=== PATIENT | male | born 1950 | race Caucasian/White ===

== ENCOUNTER 2018-02-20 10:30 | Day surgery (SDC) | payer MEDICARE, OTHER, SELFPAY ==
--- NOTE | 2018-02-20 12:17 | OP.PCM_ITS ---
Operative Report Date of Procedure: 02/20/18 DC cardioversion. 67-year-old man with a history of chronic persistent atrial fibrillation. The patient has been on anticoagulation for at least 3 weeks and was brought to the cardiac catheterization lab in the postabsorptive nonsedated state. The patient was seen by Dr. Vanegas of the critical care division. The patient was administered 90 mg of intravenous propofol. Anterior-posterior pads were applied. 200 J of synchronized DC cardioversion energy were applied we did not resulted in reversion to sinus rhythm. The patient then received 300 J of biphasic synchronized DC cardioversion energy with prompt reversal to sinus rhythm. Conclusion: Successful DC cardioversion to sinus rhythm. Follow-up with primary real estate officer.
--- NOTE | 2018-02-20 13:19 | OP.PCM_ITS ---
Problem List (1) A-fib Status: Chronic Qualifiers: Atrial fibrillation type: chronic Qualified Code(s): I48.2 - Chronic atrial fibrillation (2) AHMET (obstructive sleep apnea) Status: Chronic (3) History of tobacco abuse Status: Chronic (4) Morbid obesity Status: Chronic Operative Report Date of Procedure: 02/20/18 - Conscious sedation CONSCIOUS SEDATION REPORT BRIEF HISTORY OF PRESENT ILLNESS: The patient is a 67-year-old male who presented to [facility] for an elective outpatient cardioversion due to underlying atrial fibrillation. The patient reports no PO intake since midnight. The patient does have a history of obstructive sleep apnea. The patient reports a history of smoking, but has not been diagnosed with COPD. The patient denies any recent constitutional symptoms such as fevers, chills, nausea or vomiting. The patient denies previous anesthetic complications. Last known ejection fraction of 55%. PHYSICAL EXAMINATION: VITAL SIGNS: Reviewed and were acceptable. GENERAL: The patient is an obese male, in no apparent distress, speaking in full sentences. HEENT: Normocephalic, atraumatic. Mucous membranes are moist and pink. Good mouth opening noted. Trachea is midline. Good neck mobility. MP IV CHEST: S1, S2 irregularly irregular. No murmurs, rubs or gallops were noted. LUNGS: Clear to auscultation bilaterally without appreciable wheezes, rales or rhonchi. ABDOMEN: Soft, nontender, nondistended. Positive bowel sounds. EXTREMITIES: There is no clubbing, cyanosis or edema. ASA Class: II DESCRIPTION OF PROCEDURE: After confirmation of informed consent, the patient's anesthesia plan was reviewed in detail. Propofol was chosen. Risks and benefits were reviewed and the patient agreed to proceed. At 12:03 PM, the patient was given 40 mg of propofol. The patient required a total of 90 mg of propofol throughout the procedure to achieve appropriate sedation. The patient achieved an appropriate level of sedation and received 2 attempt s synchronized cardioversion, at 200 J and [address] Holder at the bedside. This was successful in achieving normal sinus rhythm. The patient was monitored until 12:11 PM, at which time the patient reached their baseline mental status and function. The patient tolerated the procedure well. COMPLICATIONS: None ESTIMATED BLOOD LOSS: None RECOMMENDATIONS: Okay to recover in usual fashion. Code Visit [id number]: Other Procedure See Report - 60411-0 minutes conscious sedation
== END 2018-02-20 13:30 | disposition home or self-care (01) ==
PROVIDERS: Family Provider Student in an Organized Health Care Education/Training Program; PCP Student in an Organized Health Care Education/Training Program; Referring Provider Internal Medicine Cardiovascular Disease; Visit Provider Internal Medicine Cardiovascular Disease
DX: I48.2 Chronic atrial fibrillation (principal); I48.0 Paroxysmal atrial fibrillation; I10 Essential (primary) hypertension; G47.33 Obstructive sleep apnea (adult) (pediatric); E78.5 Hyperlipidemia, unspecified; M19.90 Unspecified osteoarthritis, unspecified site; E66.01 Morbid (severe) obesity due to excess calories; Z68.41 Body mass index [BMI] 40.0-44.9, adult; Z87.891 Personal history of nicotine dependence; Z79.01 Long term (current) use of anticoagulants; Z79.899 Other long term (current) drug therapy
CPT/HCPCS: 92960; 93005; J7040

== ENCOUNTER 2019-04-21 03:06 | Emergency (ER) | payer MEDICARE, OTHER, SELFPAY ==
[2018-10-11 09:56] VITALS: BMI 44.2
[2019-04-21 03:07] VITALS: BP 147/86; PULSE 86; RESP 14; TEMP 36.7; O2SAT 96; BMI 44.9
--- NOTE | 2019-04-21 03:27 | EKG12_ITS ---
Test Reason : SYNCOPE Blood Pressure : / mmHG Vent. Rate : 085 BPM Atrial Rate : 312 BPM P-R Int : 000 ms QRS Dur : 094 ms QT Int : 366 ms P-R-T Axes : 000 -29 060 degrees QTc Int : 435 ms Atrial fibrillation Abnormal ECG Confirmed by MARIS PORTILLO, HUNTER ([id number]), segment assembler JENSEN TROTTER ([id number]) on 04/23/2019 12:19:40 PM Referred By: Chidi Greenberg Confirmed By:HUNTER POLLOCK MD
--- NOTE | 2019-04-21 03:28 | ED.VIS.GEN ---
History of Present Illness Chief Complaint: Syncope Informant: Patient Narrative: Stated he had a syncopal episode tonight. He got up to use the restroom. He was standing at the toilet got lightheaded and passed out. He found himself on the floor. He stated he did not injure himself. He did not hit his head. He does not have a headache. He has had this happen remotely when he was in atrial fibrillation. Has a history of atrial fibrillation and is on medications for this. This includes Xarelto. He is also on flecainide. Denies any symptoms currently. EMS brought the patient in. EMS EKG does show atrial fibrillation. The patient stated he has not been in atrial fibrillation for the last year. He has been in normal sinus rhythm. He had unsuccessful cardioversion in the past as well. He was able to be chemical cardioverted however. He sees cardiology Dr. Holder. - Past Medical History (1) Paroxysmal atrial fibrillation Status: Chronic (2) Essential (primary) hypertension Status: Chronic (3) Hyperlipidemia Status: Chronic (4) Morbid obesity Status: Chronic Past Medical History - Allergies and Home Meds Allergies/Adverse Reactions: Allergies psyllium husk Adverse Reaction (Uncoded 04/21/19 03:07) Rash Primary Care Physician: Chidi Greenberg DO [Primary Care Provider] - Prior records reviewed: Yes Past Medical History: - - See problem list Surgical History: - - Cardioversion Lives: With Family Smoking Status: Never smoker Alcohol: None Drugs: None Review of Systems General: Denies: Chills, Fever, Sweats Eyes: Denies: Visual changes - bilaterally, Diplopia ENT: Denies: Rhinorrhea, Sore throat Cardiovascular: Denies: Chest pain, Palpitations Respiratory: Denies: Dyspnea, Cough, Dyspnea on exertion Gastrointestinal: Denies: Abdominal pain, Nausea, Vomiting, Diarrhea, Melena, Hematochezia Genitourinary: Denies: Dysuria, Hematuria, Frequency Musculoskeletal: Denies: Back pain, Extremity Pain Skin: Denies: Rash, Wounds Neurological: Denies: Headache, Weakness, Numbness Physical Exam Vital Signs/Narrative: Vital Signs Temp Pulse Resp BP Pulse Ox 04/21/19 03:07 98.1 F 86 14 147/86 H 96 General: Well nourished, Well developed, No Acute Distress Head: Normocephalic, Atraumatic Eyes: Perrl, EOMI ENT: Moist mucous membranes, No rhinorrhea Neck: Supple, Nontender Cardiovascular: Regular rate, No murmurs, Irregular. Negative for: Regular rhythm Respiratory: No distress, CTA bilaterally, Chest nontender Abdomen: Soft, Nontender, Nondistended, Normal bowel sounds Back: Nontender, Normal Inspection Extremities: Nontender, No edema Skin: Normal color, No rash Neurological: Alert, Oriented x3, Cranial nerves II-XII grossly intact, Normal Strength, Normal Sensation Psychological: Normal affect, Normal Mood Diagnostic/Tx/Re-eval - Medical Decision Making No evidence of head trauma. I do not feel the patient needs a CT of his head. Lab work EKG and checks chest x-ray obtained lab work shows no acute abnormalities. Troponin negative. CBC normal. EKG shows atrial fibrillation at a rate of 85 with no ischemia. Chest x-ray is unremarkable. Discussed with cardiology Dr. dell Johnson. He recommends seeing the patient in the office. The patient will continue medications for the A. fib. I do not feel he needs to be admitted. ED Disposition - Plan for ED Patient: Disposition: Home or Assisted Living Diagnosis: Atrial fibrillation, Syncope Instructions: Atrial Fibrillation Referrals: Kerwin Holder MD [STAFF PHYSICIAN] -
[2019-04-21 03:34] LABS: Absolute Lymphocyte Count 5.25 X10^3/uL (0.83-4.51); Absolute Neutrophil Count 2.8 X10^3/uL (2.0-7.7); Basophil# 0.04 X10^3/uL; Basophil% 0.4 % (0-1); Eosinophil# 0.16 X10^3/uL; Eosinophils% 1.8 % (0-5); Hematocrit 44.3 % (40-54); Hemoglobin 15.8 g/dL (13.0-16.5); Lymphocyte # 5.25 X10^3/ul (4.0); Lymphocyte % 58.1 % (19-41); Mean Corp Hgb Conc 35.7 g/dL (32-36); Mean Corpuscular Hgb 33.3 pg (27.0-32.0); Mean Corpuscular Volume 93.3 fL (80-94); Mean Platelet Vol. 9.2 fl (6.2-12.0); Monocyte# 0.74 X10^3/uL; Monocyte% 8.2 % (0-10); NRBC Flagged by Analyzer 0 % (0-5); Neutrophil # 2.82 X10^3/uL (2.7-7.7); Neutrophil % 31.3 % (47-70); POSITIVE DIFFERENTIAL YES; Platelet Count 229 K/mm3 (150-450); RBC Distribution Width CV 11.5 % (11.6-14.6); RBC Distribution Width SD 39.4 fl (35.1-43.9); Red Blood Count 4.75 M/mm3 (4.6-6.2)
[2019-04-21 03:35] LABS: Differential Indicated SCAN CRITERIA MET
--- NOTE | 2019-04-21 03:47 | RAD_ITS ---
HISTORY: SYNCOPE. PT STATES HE FELT NOT RIGHT WHEN HE WENT TO BED. WOKE UP TWICE AND BOTH TIMES HE GOT UP AND PASSED OUT. EXAMINATION/TECHNIQUE: XR Chest 2 Views: COMPARISON: None FINDINGS: Cardiac telemetry leads in place. Mild elevation of the right hemidiaphragm compatible with chronic change. Normal heart size. Central peribronchial thickening and chronic appearing interstitial thickening. No focal infiltrate or vascular congestion. No pleural effusion. No pneumothorax. Hypertrophic degenerative changes of the dorsal spine. RAD/Chest PA and Lateral IMPRESSION: Bronchitis pattern. No focal infiltrate or pneumonia. If there is smoking history, this may reflect chronic bronchitis. at 0575 Reported and signed by: Roberto Sanchez MD Electronically Signed: Roberto Sanchez, at 5:32 EST Tel , Service support ,
[2019-04-21 03:55] LABS: Anion Gap 6 (5-15); BUN 14 mg/dL (7-18); BUN/Creat Ratio 14.4 RATIO (10-20); Calcium,Total 9.1 mg/dL (8.5-10.1); Chloride 106 mmol/L (98-107); Creatinine, Serum 0.97 mg/dL (0.70-1.30); EST Glomerular Filtration Rate 81 mL/min (>60); Est Glom Filt Rate - Afr Amer 99 mL/min (>60); Estimated Creatinine Clearance 81.23 ml/min; Glucose 110 mg/dL (74-106); Potassium 3.5 mmol/L (3.5-5.1); Sodium Level 139 mmol/L (136-145)
[2019-04-21 04:11] LABS: Differential Comment SCANNED
[2019-04-21 04:12] LABS: Platelet Estimate ADEQUATE (ADEQ); Red Cell Morphology NORM C+C NORMAL (NORM C&C)
[2019-04-21 04:13] LABS: Reactive Lymphocyte RARE
[2019-04-21 04:58] VITALS: BP 135/75; PULSE 83; RESP 14; O2SAT 98
== END 2019-04-21 04:59 | disposition home or self-care (01) ==
PROVIDERS: Emergency Provider Emergency Medicine; PCP Student in an Organized Health Care Education/Training Program; Referring Provider Student in an Organized Health Care Education/Training Program
DX: I48.0 Paroxysmal atrial fibrillation (principal); R55 Syncope and collapse; I10 Essential (primary) hypertension; E78.5 Hyperlipidemia, unspecified; E66.01 Morbid (severe) obesity due to excess calories
CPT/HCPCS: 71046; 80048; 84484; 85025; 93005; 99285; A4216